=== PATIENT | male | born 1955 | race Hispanic/Latino ===

== ENCOUNTER 2023-11-18 15:40 | Emergency (ER) | payer OTHER ==
[2023-11-18] MEDS ORDERED: Clindamycin 150 MG CAP ONE (18:31)
== END 2023-11-18 18:43 ==
LOC: NAV ERS 15:40 → EEVIPCON 15:40 → NAV ERS 18:43
DX: L03.115 Cellulitis of right lower limb (principal); E11.9 Type 2 diabetes mellitus without complications; I10 Essential (primary) hypertension; J44.9 Chronic obstructive pulmonary disease, unspecified; E78.00 Pure hypercholesterolemia, unspecified; Z79.899 Other long term (current) drug therapy; Z79.84 Long term (current) use of oral hypoglycemic drugs; Z79.4 Long term (current) use of insulin

== ENCOUNTER 2024-01-16 12:28 | Emergency (ER) | payer OTHER ==
[2024-01-16 13:09] LABS: #Basophils 0.1 thou/uL (0.0-0.2); #Eosinophils 0.1 thou/uL (0.0-0.7); #Monocytes 1.1 thou/uL (0.11-0.59); #Neutrophils 10.7 thou/uL (1.40-6.50); %Basophils 0.5 % (0.0-1.0); %Eosinophils 0.8 % (0.0-10.0); %Lymphocytes 7.9 % (21.0-51.0); %Monocytes 8.1 % (0.0-10.0); %Neutrophils 82.7 % (42.0-75.0); Hematocrit 38.7 % (42.0-52.0); Hemoglobin 13.3 g/dL (14.0-18.0); Mean Corpuscular HGB CONC 34.3 g/dL (32.0-36.0); Mean Corpuscular Volume 87.6 fl (78.0-98.0); Mean Platelet Volume 8.9 fL (7.4-10.4); Platelet Count 228 10x3/uL (130-400); RBC Distribution Width 12.3 % (11.5-14.5); Red Blood Cell (RBC) Count 4.42 mill/uL (4.70-6.10)
[2024-01-16 13:19] LABS: ALT (SGPT) 21 U/L (8-55); AST (SGOT) 24 U/L (5-34); Albumin 3.4 g/dL (3.4-4.8); Alkaline Phosphatase 113 U/L (40-110); Anion Gap 14 mmol/L (10-20); BUN (Urea Nitrogen) 34 mg/dL (8.4-25.7); Bilirubin, Total 0.3 mg/dL (0.2-1.2); Calc. Creatinine Clearance 0 mL/min (70-130); Calcium 8.9 mg/dL (7.8-10.44); Carbon Dioxide 18 mmol/L (23-31); Chloride 107 mmol/L (98-107); Estimated GFR 35; Globulin 4.2 g/dL (2.4-3.5); Glucose 76 mg/dL (80-115); Potassium 4.6 mmol/L (3.5-5.1); Protein, Total 7.6 g/dL (5.8-8.1); Sodium 134 mmol/L (136-145)
[2024-01-16] MEDS ORDERED: Sodium Chloride 0.9% 100 ML ONE (13:56)
[2024-01-16] MEDS ORDERED: Cefepime 2 GM VIAL ONE (13:56)
[2024-01-16] MEDS ORDERED: Sodium Chloride 0.9% 1,000 ML ONE (13:56)
[2024-01-16] MEDS ORDERED: fentaNYL 50 mcg/mL 1 mL Vial ONE ×2 (13:56→20:11)
[2024-01-16] MEDS ORDERED: Vancomycin 1 GM VIAL ONE (14:43)
[2024-01-16] MEDS ORDERED: Sodium Chloride 0.9% 250 ML 250 ML ONE (14:44)
== END 2024-01-16 21:50 | disposition short-term general hospital (02) ==
LOC: NAV ERS 12:28
DX: L03.115 Cellulitis of right lower limb (principal); E11.9 Type 2 diabetes mellitus without complications; J44.9 Chronic obstructive pulmonary disease, unspecified; I10 Essential (primary) hypertension
CPT/HCPCS: 36416; 80053; 83605; 85025; 96365; 96366; 96368; 96375; 96376; J0692; J3010; J3370; J7030; J7050